=== PATIENT | female | born 1990 | race Caucasian/White ===

== ENCOUNTER 2019-04-30 18:25 | Emergency (ER) | payer BC, OTHER ==
[~2019-04-30] VITALS: Ht 172.7 cm; Wt 49.9 kg
[2019-04-30] MEDS ORDERED: LIDOCAINE 1% HCL (LOCAL ANESTH.) INJ 20ML MDV IJ ONE (20:30)
[2019-04-30 21:52] VITALS: BP 121/72
== END 2019-04-30 22:56 | disposition home or self-care (01) ==
LOC: ER 18:25
DX: S61.411A Laceration without foreign body of right hand, initial encounter (principal); Z88.1 Allergy status to other antibiotic agents; W25.XXXA Contact with sharp glass, initial encounter; Y93.89 Activity, other specified; Y92.89 Other specified places as the place of occurrence of the external cause; Y99.0 Civilian activity done for income or pay
CPT/HCPCS: 12001; 73130